=== PATIENT | female | born 1940 | race Caucasian/White ===

== ENCOUNTER 2020-03-31 17:23 | Emergency (ER) | payer MEDICARE ==
[~2020-03-31] VITALS: Ht 167.6 cm; Wt 97.5 kg
[~2020-03-31 17:23] MED LIST: FENOFIBRATE145 MG PO; GLIMEPIRIDE2 MG PO; HYDROCHLOROTHIA25 MG PO; LEXAPRO10 MG PO; LOSARTAN POTASS25 MG PO; METFORMIN HCL500 MG PO; OMEPRAZOLE40 MG PO; POTASSIUM CHLO10 ME1 PO; Z.0.HYDROCHLOROTHIA2; Z.0.NORCO 10-325 T1; Z.0.NORVASC10 MG; Z.1.POTASSIUM CHLO10; [UNRECOGNIZED DRUG - OTHER]
[2020-03-31] MEDS ORDERED: TRAMADOL HCL 50 MG TAB PO ONE (21:30)
[2020-03-31] MEDS ORDERED: ULTRAM50 MG PO (21:42)
== END 2020-03-31 22:37 | disposition home or self-care (01) ==
LOC: ER 19:24
DX: S42.254A Nondisplaced fracture of greater tuberosity of right humerus, initial encounter for closed fracture (principal); R51.9 Headache, unspecified; M54.2 Cervicalgia; M25.521 Pain in right elbow; M25.551 Pain in right hip; M25.561 Pain in right knee; W01.0XXA Fall on same level from slipping, tripping and stumbling without subsequent striking against object, initial encounter; Y93.01 Activity, walking, marching and hiking; Y92.008 Other place in unspecified non-institutional (private) residence as the place of occurrence of the external cause; I10 Essential (primary) hypertension; E11.9 Type 2 diabetes mellitus without complications; E78.5 Hyperlipidemia, unspecified
CPT/HCPCS: 70450; 72125; 99283

== ENCOUNTER 2022-02-03 13:31 | Emergency (ER) | payer MEDICARE ==
[~2022-02-03] VITALS: Ht 170.2 cm; Wt 97.5 kg
[~2022-02-03 13:31] MED LIST changes: +ULTRAM50 MG PO
[2022-02-03] MEDS ORDERED: SODIUM CHLORIDE 0.9% 1000ML 1,000 ML IV STA (13:37)
[2022-02-03] MEDS ORDERED: ONDANSETRON HCL INJ 2MG/ML 2ML 2 MG/ML VIAL IV ONE (13:45)
[2022-02-03 13:54] LABS: BASOPHILS % 0.2 % (0.0-1.0); EOSINOPHILS # (AUTO) 0.2 (0.0-0.4); EOSINOPHILS % 1.5 % (0.0-6.0); HEMATOCRIT 38.9 % (34.2-44.1); HEMOGLOBIN 12.3 g/dL (12.0-16.0); LYMPHOCYTES # (AUTO) 3.4 (1.0-3.2); LYMPHOCYTES % 31.2 % (18.0-39.1); MEAN CORPUSCULAR HEMOGLOBIN 27.2 pg (28-32); MEAN CORPUSCULAR HGB CONC 31.6 g/dL (31-35); MEAN CORPUSCULAR VOLUME 86.1 fL (81-99); MONOCYTES # (AUTO) 0.8 (0.2-0.8); MONOCYTES % 6.9 % (4.4-11.3); NEUTROPHILS # (AUTO) 6.5 (2.1-6.9); NEUTROPHILS % 59.8 % (38.7-80.0); PLATELET COUNT 270 x10e3/uL (140-360); RED BLOOD COUNT 4.52 x10e6/uL (3.6-5.1)
[2022-02-03 14:12] LABS: ALANINE AMINOTRANSFERASE 16 IU/L (0-55); ALBUMIN 3.5 g/dL (3.5-5.0); ALBUMIN/GLOBULIN RATIO 1.1 (0.8-2.0); ALKALINE PHOSPHATASE 61 IU/L (40-150); BLOOD UREA NITROGEN 20 mg/dL (7-26); BUN/CREATININE RATIO 18 (6-25); CALCIUM 9.7 mg/dL (8.4-10.2); CREATINE KINASE 46 IU/L (29-168); CREATININE, SERUM 1.12 mg/dL (0.57-1.11); GLUCOSE 175 mg/dL (74-118)
[2022-02-03 14:23] LABS: CLARITY,URINE CLEAR (CLEAR); COLOR,URINE YELLOW (YELLOW); KETONES,URINE TRACE (NEGATIVE); LEUKOCYTE ESTERASE ,URINE TRACE (NEGATIVE); NITRITE,URINE NEGATIVE (NEGATIVE); PROTEIN,URINE DIPSTICK NEGATIVE (NEGATIVE); URINE UROBILINOGEN 0.2 mg/dL (0.2 - 1)
[2022-02-03] MEDS ORDERED: IOPAMIDOL 370 MG/ML 100 ML INFUS..BTL INJ ONE (14:23)
[2022-02-03] MEDS ORDERED: SODIUM CHLORIDE 0.9% 100 ML ONE (14:23)
[2022-02-03 14:28] LABS: BACTERIA,URINE MODERATE /HPF; EPITHELIAL CELLS,URINE MODERATE /LPF; RBC,URINE 0-5 /HPF (0-5)
[2022-02-03 14:34] LABS: ANION GAP 17.9 mmol/L (8-16); CARBON DIOXIDE 23 mmol/L (22-29); CHLORIDE 98 mmol/L (98-107); POTASSIUM 3.9 mmol/L (3.5-5.1); SODIUM 135 mmol/L (136-145)
[2022-02-03] MEDS ORDERED: ASPIRIN 325 MG TAB PO ONE (15:30)
[2022-02-03 22:41] VITALS: BP 158/87
== END 2022-02-03 23:07 | disposition other institution (70) ==
LOC: VACCPMC 13:38
DX: R53.83 Other fatigue (principal); G45.9 Transient cerebral ischemic attack, unspecified; E11.65 Type 2 diabetes mellitus with hyperglycemia; I10 Essential (primary) hypertension; E78.5 Hyperlipidemia, unspecified; K21.9 Gastro-esophageal reflux disease without esophagitis; F41.9 Anxiety disorder, unspecified
CPT/HCPCS: 36415; 70450; 70496; 70498; 80053; 81001; 82550; 82553; 84484; 85025; 93005; 99284; J2405; J7030; J7050; Q9967